=== PATIENT | female | born 1980 | race Two or more races ===

== ENCOUNTER 2017-11-17 07:50 | Outpatient (CLI) | payer OTHER ==
[~2017-11-17] VITALS: Ht 162.6 cm; Wt 72.6 kg
[~2017-11-17 07:50] MED LIST: CARAFATE SU1 G/10 ML PO; NEXIUM20 MG/PACK PO; PREVACID30 MG PO; PROTONIX40 MG PO
[2017-11-17] MEDS ORDERED: AMOX-CLAV 875-1 EACH PO (10:39)
[2017-11-17] MEDS ORDERED: FLONASE16 GM NASAL (10:40)
[2017-11-17] MEDS ORDERED: MEDROL4 MG PO (10:40)
[2017-11-17] MEDS ORDERED: PROTONIX40 MG PO (10:41)
== END 2017-11-17 08:10 | disposition home or self-care (01) ==
LOC: OFIC 805 07:50
DX: J01.80 Other acute sinusitis (principal); J32.8 Other chronic sinusitis; J33.8 Other polyp of sinus; R22.1 Localized swelling, mass and lump, neck; J34.2 Deviated nasal septum

== ENCOUNTER 2020-04-30 01:09 | Emergency (ER) | payer OTHER ==
[~2020-04-30] VITALS: Ht 162.6 cm; Wt 69.4 kg
[~2020-04-30 01:09] MED LIST changes: +AMOX-CLAV 875-1 EACH PO; +FLONASE16 GM NASAL; +MEDROL4 MG PO
[2020-04-30] MEDS ORDERED: RELAFEN (01:27)
[2020-04-30] MEDS ORDERED: TYLENOR (01:32)
== END 2020-04-30 07:54 | disposition home or self-care (01) ==
LOC: ER 01:09
DX: R10.32 Left lower quadrant pain (principal)

== ENCOUNTER 2023-06-21 13:54 | Outpatient (CLI) | payer OTHER ==
[~2023-06-21 13:54] MED LIST changes: +RELAFEN; +TYLENOR
== END 2023-06-21 13:56 | disposition home or self-care (01) ==
LOC: SONOGRAMA 13:54
PROVIDERS: ATTEND Pathology Anatomic Pathology & Clinical Pathology
DX: D34 Benign neoplasm of thyroid gland (principal); E07.89 Other specified disorders of thyroid; E04.8 Other specified nontoxic goiter